=== PATIENT | male | born 1975 | race Caucasian/White ===

== ENCOUNTER 2025-09-27 11:43 | Emergency (ER) | payer BC ==
[~2025-09-27] VITALS: Ht 180.3 cm; Wt 98.8 kg
[2025-09-27] MEDS ORDERED: CYCLOBENZAPRINE HCL 10 MG TAB PO ONE (13:00)
[2025-09-27] MEDS ORDERED: predniSONE 20 MG TAB PO ONE (13:00)
[2025-09-27] MEDS ORDERED: OXYCODONE HCL 5 MG TAB PO ONE (13:00)
[2025-09-27] MEDS ORDERED: LIDOCAINE HCL 4% 1 EACH PATCH TD ONE (13:00)
[2025-09-27] MEDS ORDERED: IBUPROFEN 600 MG TAB PO ONE (13:00)
[2025-09-27] MEDS ORDERED: CYCLOBENZAPRINE10 MG PO (13:52)
[2025-09-27] MEDS ORDERED: PREDNISONE20 MG PO (13:55)
[2025-09-27 14:03] VITALS: BP 160/101
[2025-09-27] MEDS ORDERED: LIDOCAINE PATCH REMOVAL 1 EA TD SCH (21:00)
== END 2025-09-27 14:39 | disposition home or self-care (01) ==
LOC: ED 11:43
DX: M54.14 Radiculopathy, thoracic region (principal); I10 Essential (primary) hypertension
CPT/HCPCS: 99283; A9270; J7512